=== PATIENT | female | born 1985 | race American Indian/Alaskan Native ===

== ENCOUNTER 2020-03-27 17:01 | Emergency (ER) | payer OTHER ==
[2020-03-27 17:10] VITALS: BP 112/61
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
== END 2020-03-27 19:17 | disposition home or self-care (01) ==
LOC: ED 17:01
DX: M79.641 Pain in right hand (principal); M25.531 Pain in right wrist; V49.49XA Driver injured in collision with other motor vehicles in traffic accident, initial encounter; Y93.89 Activity, other specified; Y92.488 Other paved roadways as the place of occurrence of the external cause; Y99.8 Other external cause status
CPT/HCPCS: 99283